=== PATIENT | male | born 1980 | race Caucasian/White ===

== ENCOUNTER 2022-04-06 18:00 | Emergency (ER) | payer OTHER, MEDICAID, SELFPAY ==
--- NOTE | ~2022-04-06 | CT_ITS ---
EXAMINATION: CT CHEST, ABDOMEN AND PELVIS WITH CONTRAST. CLINICAL INFORMATION: Fall with chest trauma and abdominal pain. COMPARISON: CT abdomen pelvis 04/05/2014. TECHNIQUE: Multidetector volumetric imaging was performed from the thoracic inlet through the pubic symphysis following the administration of: Oral contrast: No Intravenous contrast: 85 mL Omnipaque 350 No contrast reaction reported Sagittal and coronal reformatted images were obtained on the technologist workstation. In addition, thin section, high resolution reconstruction, targeted reformatted images through the thoracic and lumbar spine were obtained with coronal and sagittal high resolution reformatted images as well. This CT examination was performed using dose optimization techniques as appropriate, variously including the following: *Automated exposure control *Adjustment of mA and/or kV according to patient size (this includes techniques or standardized protocols for targeted exams where dose is matched to indication/reason for exam; i.e. extremities or head) *Use of iterative reconstruction technique Total exam dose-length product 597 mGy-cm FINDINGS: CHEST: VASCULAR: The aorta is normal; no evidence of dissection, aneurysm, or traumatic aortic injury. The central pulmonary arteries enhance normally. AORTIC ISTHMUS: Normal. MEDIASTINUM: No mediastinal fluid or hematoma. No hilar or mediastinal lymphadenopathy. LUNG: No nodules, mass, or focal consolidation. PLEURA: No pleural effusion. No pneumothorax. No pleural mass or thickening. CHEST WALL/AXILLA: No displaced rib fractures are seen. A vacuum phenomena is present in the sternomanubrial joint. No chest wall fractures are seen. ABDOMEN/PELVIS : LIVER : The liver is normal in size and shape but I suspect there is hepatic steatosis. No focal hepatic lesion or biliary ductal dilatation is present. GALLBLADDER, AND BILIARY TREE The gallbladder is unremarkable with no evidence of radiopaque gallstones, gallbladder wall thickening, or obvious pericholecystic inflammatory changes. PANCREAS: Normal; no mass or surrounding fluid. SPLEEN: Normal size. No focal lesion. ADRENAL GLANDS: Normal; no mass. KIDNEYS AND URETERS: The kidneys are normal in size, shape, and attenuation. No hydronephrosis, hydroureter, or calculi. URINARY BLADDER: Bladder wall is symmetrically thickened. GASTROINTESTINAL TRACT: An ileostomy is present. The colon is decompressed There is no evidence of bowel obstruction. VASCULAR STRUCTURES: There is no evidence of aortic or iliac injury. The inferior vena cava is intact. A TrapEase IVC filter is present. ACTIVE BLEEDING: None LYMPH NODES: No lymphadenopathy. The aorta is unremarkable. PELVIC VISCERA: Mild BPH. FREE FLUID: None. ABDOMINAL WALL: No significant hernia is appreciated. OSSEOUS STRUCTURES : There is a fracture through the left iliac bone (see [place] images) which appears to be old as similar appearances were present on the 04/05/2014 study. Pedicular screws and vertical stabilization rods are present in the lower thoracic and upper lumbar spine. Hardware appears intact without fracture. Severe degenerative changes present in the right hip with contracture and deformity. No pelvic fracture is seen. No clavicle or scapula fracture. No displaced rib fracture seen. No sternal fracture seen.No sacral or pelvic fracture. CT/CT abdomen pelvis w IV con IMPRESSION: 1. No evidence of an acute traumatic injury in the chest, abdomen or pelvis. 2. Incidental note made of hepatic steatosis, mild BPH, chronic fracture left iliac bone and severe degenerative changes in the right hip.
--- NOTE | ~2022-04-06 | XR_ITS ---
EXAMINATION: XR knee LT 1V, XR knee RT 1V CLINICAL INFORMATION: Reason for Exam knee pain sp fall COMPARISON: None. TECHNIQUE: Single lateral views both knees FINDINGS: Right knee: No fracture or dislocation is identified on limited single view. No knee joint effusion identified. The knee is positioned in greater than 90 degrees of flexion. Small patellar marginal osteophytes. No large osteophytes. No osseous lesion. Left knee: No fracture or dislocation on limited single view. No joint effusion. Small patellar marginal osteophytes. No osseous lesion. The knee positioned at approximately 90 degrees of flexion. XR/XR knee LT 1V IMPRESSION: 1. Limited exam. No acute osseous injury or joint effusion identified at either knee on limited single view.
--- NOTE | ~2022-04-06 | CT_ITS ---
EXAMINATION: HEAD CT WITHOUT CONTRAST CERVICAL SPINE CT WITHOUT CONTRAST CLINICAL INFORMATION: Neck pain status post fall. Loss of consciousness is question EtOH. COMPARISON: CT dated 12/29/2014 TECHNIQUE: Contiguous axial imaging of the head was performed without the administration of IV contrast. Axial multidetector volumetric images were also performed through the cervical spine without intravenous contrast. Multiplanar reconstructed images in coronal and sagittal orientations were submitted. This CT examination was performed using dose optimization techniques as appropriate, variously including the following: *Automated exposure control *Adjustment of mA and/or kV according to patient size (this includes techniques or standardized protocols for targeted exams where dose is matched to indication/reason for exam; i.e. extremities or head) *Use of iterative reconstruction technique DOSE: 1200 mGy-cm FINDINGS: HEAD: Marked hydrocephalus is again noted with dilatation of the lateral, third, and fourth ventricles. This is not significantly changed as compared to the prior study from 2014. There is associated sulcal effacement diffusely. There is no evidence of acute intracranial hemorrhage or territorial infarction. No abnormal mass-effect or midline shift. No extra-axial fluid collections. [place] to white matter differentiation is well preserved. There is no abnormal attenuation within the brain parenchyma. A perivascular space is again seen in the left basal ganglia region, unchanged as compared to prior. The soft tissues and osseous structures are normal. Mild mucosal thickening in the left frontal ethmoidal recess. Paranasal sinuses and mastoid air cells are otherwise clear. CERVICAL SPINE: Vertebral body heights are normal. No fractures of the vertebral bodies or posterior elements. Reversal of the normal cervical lordosis is likely positional or degenerative. No vertebral body or posterior element subluxation. Degenerative osteophytes and sclerosis are present at the atlantodental articulation, though normal alignment is maintained. Craniocervical junction is normal. Mild to moderate degenerative disc disease at C5-C6 and C6-7 with loss of intervertebral disc height, endplate osteophytes, and uncovertebral osteophytes. More mild degenerative disc disease at C7-T1. Facet joints are normal. Posterior disc protrusions at C5-C6 and C6-C7 produce mild central canal narrowing. Uncovertebral osteophytes produce neural foraminal encroachment on the left at C6-C7. No significant paravertebral soft tissue swelling. Atherosclerotic calcifications are present in the carotid arteries. Imaged portions of the lung apices are clear. CT/CT cervical spine wo IV con IMPRESSION: 1. No acute intracranial pathology. 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 2. No acute fracture or malalignment in the cervical spine. 3. Mild to moderate degenerative disc disease at C5-C6 and C6-C7.
--- NOTE | ~2022-04-06 | XR_ITS ---
EXAMINATION: XR knee LT 1V, XR knee RT 1V CLINICAL INFORMATION: Reason for Exam knee pain sp fall COMPARISON: None. TECHNIQUE: Single lateral views both knees FINDINGS: Right knee: No fracture or dislocation is identified on limited single view. No knee joint effusion identified. The knee is positioned in greater than 90 degrees of flexion. Small patellar marginal osteophytes. No large osteophytes. No osseous lesion. Left knee: No fracture or dislocation on limited single view. No joint effusion. Small patellar marginal osteophytes. No osseous lesion. The knee positioned at approximately 90 degrees of flexion. XR/XR knee RT 1V IMPRESSION: 1. Limited exam. No acute osseous injury or joint effusion identified at either knee on limited single view.
[2022-04-06 18:41] VITALS: PULSE 82; O2SAT 98
[2022-04-06 18:42] VITALS: BP 108/66; PULSE 58; RESP 18; TEMP 36.4; O2SAT 98; BMI 22.2
--- NOTE | 2022-04-06 18:43 | ED_ITS ---
HPI - General Adult General Chief complaint: ETOH/Substance Use Stated complaint: etoh fall out of w/c Time Seen by Provider: 04/06/22 18:41 Source: patient Mode of arrival: ambulatory Limitations: no limitations History of Present Illness HPI narrative: 41 yo male with a ppmhx of substance abuse presents today after a fall from a wheelchair. Patient admits to ETOH consumption of 1 1/2 pints of vodka prior to the fall. Patient was wheeling uphill when suddenly was ejected from his wheelchair, landing on bilateral knees, reports some pain with rom of knees. Denies LOC. Currently on coumadin. Patient states he did not call EMS, a bystander did. Patient denies shortness of breath, chest pain, fever. chills,hea daches, nausea, vomiting, dizziniess, changes in vision, diplopia, headache, numbness or paresthesias. Patient also admits to a sacral wound of unknown time for which he receives woundcare for on Fri/Sat/Sun. To note, patient denies preceding symptoms such as chest pain, shortness of breath and dizziness prior to fall. Related Data Allergies Allergy/AdvReac Type Severity Reaction Status Date / Time Sulfa (Sulfonamide Allergy Mild RASH Unverified 02/06/20 17:06 Antibiotics) [SULFA (SULFONAMIDE ANTIBIOTICS)] Review of Systems Review of Systems: Constitutional : No Weight loss, No Fever, No Chills, No Fatigue, No Malaise ENT/Mouth : No sore throat, No Rhinorrhea Eyes: No Eye Pain, No Swelling, No Redness Cardiovascular : No Chest Pain, No SOB, No Dyspnea on Exertion, No Orthopnea, No Edema, No Palpitations Respiratory : No Cough, No Sputum, No Wheezing Gastrointestinal : No Nausea, No Vomiting, No Diarrhea, No Constipation, No abdominal Pain, No Hematochezia, No Melena Genitourinary : No Dysuria, No Urinary Frequency, No Hematuria, Musculoskeletal : + joint pain, No Myalgias, No Joint Swelling Skin : No Skin Lesions, No rash Neuro : No Weakness, No Numbness, No Dizziness, No Headache Psych : No Anxiety/Panic, No Depression All other systems reviewed and are negative Yes all other systems are reviewed and are negative [facility] Past Medical History Attestation statement: The following information was validated with the patient. Source: old records reviewed and nursing notes reviewed Social History Social History Advance Directives: No Advance Directives Information Provided: No Physical Exam ED Vital Signs: Vital Signs - 24 hr 04/06/22 18:42 04/06/22 21:43 Temperature 97.6 F 98.8 F Pulse Rate 58 73 Respiratory Rate 18 15 Blood Pressure 108/66 121/69 Pulse Oximetry 98 98 Oxygen Delivery Method Room Air Room Air BMI result Body Mass Index 22.2 Appearance: Alert.? Oriented X3.? No acute distress.? Patient smells like alcohol and appears to be acutely intoxicated. Head: Normocephalic, atraumatic, no step-offs or deformities Eyes: Pupils equal, round and reactive to light.? EOMI however horizontal nystagmus noted bilaterally. Injected conjunctiva bilaterally. Neck: Normal inspection.? Neck supple.? CVS: Normal heart rate and rhythm.? Pulses normal.? Respiratory: No respiratory distress.? Breath sounds normal.? Abdomen: Soft and nontender.? Skin: Skin warm and dry.? Normal skin color.? Normal skin turgor.?+ large unstageable decubitus ulcer to sacrum ( image below) Extremities: No lower extremity edema.? No calf ttp. 4/5 strength to bilateral upper and lower extremities Neuro: Oriented X 3.? No motor deficit.? No sensory deficit. CN 2-12 intact Course Reevaluation(s) Reevaluation #1: CBC appears to be within normal limits, chemistry with no acute findings req uiring intervention. Anion gap is elevated slightly likely secondary to alcohol intoxication. Ethanol level 343. COVID negative. Coags with no acute findings. X-rays of bilateral knees with no acute osseous injury or joint effusion. Limited exam secondary to patient's position. Patient moving bilateral lower extremities, unlikely fracture dislocation based off exam. Neurovascularly intact. CT of the abdomen pelvis with no evidence of acute traumatic injury, no acute traumatic injury in the chest either or pelvis. Hepatic steatosis noted, mild BPH, chronic fracture of the left iliac bone also noted. 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 No acute fractures or malalignment of cervical spine. Time: 23:58 Reevaluation #2: At this time patient will be placed into physician observation to allow more time for substance use disorder evaluation, time observation was started patient common cooperative no acute distress, hemodynamically stable. Pending drug screen and UA. At this time will continue to monitor. Time: 23:59 Medications Administered Discontinued Medications Generic Name Dose Route Start Last Admin Trade Name Mar PRN Reason Stop Dose Admin Iohexol 100 ml 04/06/22 22:16 04/06/22 22:16 Iohexol 350 Mg/Ml 100 Ml Infus..Btl IV 04/06/22 22:17 85 ml ONCE ONE Administration Naloxone HCl 4 mg 04/06/22 19:01 04/06/22 22:28 Naloxone Hcl Nasal 4 Mg [place] NOSTRILALT 04/06/22 19:02 Not Given ONCE ONE Medical Decision Making MDM Narrative Medical decision making narrative: 184 41-year-old male presents status post fall off wheelchair complaining of bilateral knee pain. Acute alcohol intoxication noted upon arrival. Physical examination with large decubitus ulcers, unstageable, patient receives wound care. Patient appears intoxicated, responding to sternal rub and verbal stimuli. Neuro nonfocal. Pupils equal round and reactive, noted to have horizontal nystagmus. Regular rate and rhythm. Lungs clear. Abdomen soft nontender nondistended. Will rule out intracranial hemorrhage, traumatic injuries with goldberg scan as this was a trauma. And patient is under the influence of alcohol. Will obtain basic labs, imaging. Medical Records Medical records reviewed: Yes I reviewed the patient's medical records. Lab Data Lab results reviewed: Yes I reviewed the patient's lab results. Result diagrams: 04/06/22 19:55 04/06/22 20:24 Labs: Lab Results 04/06/22 04/06/22 04/06/22 Range/Units 19:55 19:55 19:55 WBC 9.5 (4.8-10.8) X10*3/uL RBC 5.42 (4.60-5.80) X10*6/uL Hgb 16.0 (14.0-18.0) g/dl Hct 48.0 (42.0-52.0) % MCV 88.6 (80.0-98.0) fL MCH 29.5 (27.0-33.0) pg MCHC 33.3 (31.0-36.0) g/dl RDW 15.5 (11.0-16.0) % Plt Count 419 H (160-400) X10*3/uL MPV 8.3 L (9.4-12.4) fL Immature Gran % (Auto) 0.3 (0.0-0.4) % Neut % (Auto) 79.4 H (45-73) % Lymph % (Auto) 15.4 L (20-40) % [place] % (Auto) 3.6 (2-11) % Eos % (Auto) 0.4 (0-4) % Baso % (Auto) 0.9 (0-2) % Lymph # (Auto) 1.5 (1.2-4.9) X10*3/uL [place] # (Auto) 0.3 (0.1-1.2) X10*3/uL Eos # (Auto) 0.0 (0.0-0.4) X10*3/uL Baso # (Auto) 0.1 (0.0-0.2) X10*3/uL Abs Immat Gran (auto) 0.03 (0.00-0.03) X10*3/uL Absolute Neuts (auto) 7.6 (2.0-8.3) x10*3/uL Absolute Nucleated RBC 0.000 (0.0-0.012) X10*3/uL Nucleated RBC % (auto) 0.0 (0.0-0.2) /100WBC PT (10.0-13.1) SEC INR (0.9-1.1) Sodium (135-145) mmol/L Potassium (3.3-5.1) mmol/L Chloride (96-108) mmol/L Carbon Dioxide (22-29) mmol/L Anion Gap (12-20) BUN (9-16) mg/dL Creatinine (0.5-1.4) mg/dL Estim Creat Clear Calc Estimated GFR Random Glucose (60-115) mg/dL Calcium (8.4-10.2) mg/dL Magnesium (1.6-2.6) mg/dL Total Bilirubin (0.0-1.0) mg/dL AST (5-37) U/L ALT (0-40) U/L Alkaline Phosphatase (39-117) U/L Total Protein (6.5-8.0) g/dL Albumin (3.5-5.0) g/dL Ethyl Alcohol 343 H* mg/dL COVID-19 (ECTOR) Negative (Negative) COVID-19 Clin Com See Note 04/06/22 04/06/22 Range/Units 20:23 20:24 WBC (4.8-10.8) X10*3/uL RBC (4.60-5.80) X10*6/uL Hgb (14.0-18.0) g/dl Hct (42.0-52.0) % MCV (80.0-98.0) fL MCH (27.0-33.0) pg MCHC (31.0-36.0) g/dl RDW (11.0-16.0) % Plt Count (160-400) X10*3/uL MPV (9.4-12.4) fL Immature Gran % (Auto) (0.0-0.4) % Neut % (Auto) (45-73) % Lymph % (Auto) (20-40) % [place] % (Auto) (2-11) % Eos % (Auto) (0-4) % Baso % (Auto) (0-2) % Lymph # (Auto) (1.2-4.9) X10*3/uL [place] # (Auto) (0.1-1.2) X10*3/uL Eos # (Auto) (0.0-0.4) X10*3/uL Baso # (Auto) (0.0-0.2) X10*3/uL Abs Immat Gran (auto) (0.00-0.03) X10*3/uL Absolute Neuts (auto) (2.0-8.3) x10*3/uL Absolute Nucleated RBC (0.0-0.012) X10*3/uL Nucleated RBC % (auto) (0.0-0.2) /100WBC PT 11.3 (10.0-13.1) SEC INR 1.0 (0.9-1.1) Sodium 147 H (135-145) mmol/L Potassium 4.0 (3.3-5.1) mmol/L Chloride 105 (96-108) mmol/L Carbon Dioxide 25 (22-29) mmol/L Anion Gap 21 H (12-20) BUN 11 (9-16) mg/dL Creatinine 0.66 (0.5-1.4) mg/dL Estim Creat Clear Calc 141.1 Estimated GFR > 60 Random Glucose 75 (60-115) mg/dL Calcium 9.2 (8.4-10.2) mg/dL Magnesium 1.8 (1.6-2.6) mg/dL Total Bilirubin 0.2 (0.0-1.0) mg/dL AST 27 (5-37) U/L ALT 23 (0-40) U/L Alkaline Phosphatase 122 H (39-117) U/L Total Protein 7.9 (6.5-8.0) g/dL Albumin 4.5 (3.5-5.0) g/dL Ethyl Alcohol mg/dL COVID-19 (ECTOR) (Negative) COVID-19 Clin Com Critical Care Time Critical Care Time Critical Care Time: No Discharge Plan Discharge Clinical Impression: Alcoholic intoxication, Fall off motorized wheelchair, Bilateral knee pain Patient Disposition: Still a Patient
[2022-04-06 19:59] LABS: MANUAL DIFF FLAG NO
[2022-04-06 20:01] LABS: Basophils Absolute Auto 0.1 X10*3/uL (0.0-0.2); Basophils Percent Auto 0.9 % (0-2); Eosinophils Percent Auto 0.4 % (0-4); Imm Gran Abs Auto 0.03 X10*3/uL (0.00-0.03); Imm Gran Pct Auto 0.3 % (0.0-0.4); Lymphocytes Absolute Auto 1.5 X10*3/uL (1.2-4.9); Lymphocytes Percent Auto 15.4 % (20-40); Mean Corpuscular HGB Conc 33.3 g/dl (31.0-36.0); Mean Corpuscular Hemoglobin 29.5 pg (27.0-33.0); Mean Corpuscular Volume 88.6 fL (80.0-98.0); Mean Platelet Volume 8.3 fL (9.4-12.4); Monocytes Absolute Auto 0.3 X10*3/uL (0.1-1.2); Monocytes Percent Auto 3.6 % (2-11); Neutrophils Absolute Auto 7.6 x10*3/uL (2.0-8.3); Neutrophils Percent Auto 79.4 % (45-73); Platelet Count 419 X10*3/uL (160-400); Red Blood Count 5.42 X10*6/uL (4.60-5.80); Red Cell Distribution Width 15.5 % (11.0-16.0); White Blood Count 9.5 X10*3/uL (4.8-10.8)
[2022-04-06 20:15] LABS: COVID-19 Test Negative (Negative); IDNOW Serial# BCCEAD1C
[2022-04-06 20:22] LABS: Ethanol 343 mg/dL
[2022-04-06 21:17] LABS: Prothrombin Time 11.3 SEC (10.0-13.1)
[2022-04-06 21:40] LABS: Alanine Aminotransferase 23 U/L (0-40); Albumin Level 4.5 g/dL (3.5-5.0); Alkaline Phosphatase 122 U/L (39-117); Anion Gap 21 (12-20); Aspartate Amino Transferase 27 U/L (5-37); Bilirubin Total 0.2 mg/dL (0.0-1.0); Blood Urea Nitrogen 11 mg/dL (9-16); Calcium 9.2 mg/dL (8.4-10.2); Carbon Dioxide 25 mmol/L (22-29); Chloride 105 mmol/L (96-108); Creatinine Clr Calc Pharmacy 141.1; Estimated Glomerular Filt Rate > 60; Glucose Random 75 mg/dL (60-115); Magnesium 1.8 mg/dL (1.6-2.6); Sodium 147 mmol/L (135-145); Total Protein 7.9 g/dL (6.5-8.0)
[2022-04-06 21:43] VITALS: BP 121/69; PULSE 73; RESP 15; TEMP 37.1; O2SAT 98
[2022-04-06] MEDS: iohexoL 350 MG/ML 100 ML INFUS..BTL IV (22:16)
[2022-04-07 00:16] VITALS: BP 125/72; PULSE 69; RESP 16; TEMP 37; O2SAT 99
--- NOTE | 2022-04-07 00:36 | PC.NURSE ---
patient sleeping comfortably on stretcher. vital signs updated. call gould within reach. no current complaints, will continue to monitor
--- NOTE | 2022-04-07 03:00 | PC.NURSE ---
CARE team came to see patient and offer services for rehab, detox. Patient denies wanting any help or services.
--- NOTE | 2022-04-07 03:03 | MHC.CARE ---
CARE Team met with pt for BETHANYE. Pt was cooperative but pleasantly declined. He states he is on suboxone and does like being on it because it helps with the pain. He also drinks excessively but states he would never get the vivitrol shot because he doesn't want to get sick if he chose to drink. Pt states detox has not been helpful for him in the past and doesn't' really have a desire to stop although he should. He states he lives in an apartment and stays with his girlfriend a couple days a week. Pt declines any resources and thanks this telegraphic typewriter mechanic. He requests his nurse come to change out his bed pad, notified nurse of plan.
--- NOTE | 2022-04-07 03:25 | PC.NURSE ---
Dressings applied to sacral and coccyx pressure wounds. Offered help with emptying colostomy bag but patient denies. Given bag and container for emptying just in case. This RN encouraged patient to please ring the call gould if there is anything he needs. Patient states he is just embarrassed to be here, reassured there is no need to be embarrassed and that we are all here to help. Patient is very appreciative. Call gould within reach, will continue to monitor.
[2022-04-07 04:11] VITALS: BP 123/73; PULSE 71; RESP 16; TEMP 37; O2SAT 99
[2022-04-07 06:10] VITALS: RESP 16
--- NOTE | 2022-04-07 06:54 | PC.NURSE ---
Erick called at [phone] for a bls transfer back to patients home. EMS booked for 0900AM RN aware
--- NOTE | 2022-04-07 06:58 | PC.NURSE ---
ambulance booked for 9 am
[2022-04-07 07:17] VITALS: BP 133/73; PULSE 115; RESP 16; TEMP 36.6; O2SAT 96
--- NOTE | 2022-04-07 08:47 | PC.NURSE ---
pt is a/o x 4 no sob/hermes noted skin pink warm dry speaks in full sentences. pt c/o 12/29 generalized pain. pt is awaiting ems ride home. pt states that he will take his suboxen when he gets home for pain.
== END 2022-04-07 09:04 | disposition home or self-care (01) ==
PROVIDERS: Physician Assistant; Emergency Provider Internal Medicine
DX: Z04.3 Encounter for examination and observation following other accident (principal); F10.220 Alcohol dependence with intoxication, uncomplicated; Y90.8 Blood alcohol level of 240 mg/100 ml or more; F19.10 Other psychoactive substance abuse, uncomplicated; M25.562 Pain in left knee; M25.561 Pain in right knee; L89.150 Pressure ulcer of sacral region, unstageable; Z20.822 Contact with and (suspected) exposure to COVID-19
CPT/HCPCS: 36415; 70450; 71260; 72125; 73560; 74177; 80053; 82077; 83735; 85025; 85610; 87635; 99284; Q9967